=== PATIENT | female | born 1965 | race African-American/Black ===

== ENCOUNTER → 2021-08-03 | Outpatient (CLI) | payer OTHER | LOC: SJCVCIMAG 07:16 | PROVIDERS: ATTEND Internal Medicine | DX: R07.9 Chest pain, unspecified (principal); I10 Essential (primary) hypertension; R00.2 Palpitations; F41.8 Other specified anxiety disorders; Z88.8 Allergy status to other drugs, medicaments and biological substances; Z79.899 Other long term (current) drug therapy ==